=== PATIENT | male | born 1985 | race Caucasian/White ===

== ENCOUNTER 2018-02-27 21:49 | Emergency (ER) | payer OTHER ==
[~2018-02-27] VITALS: Ht 185.4 cm; Wt 104.3 kg
[2018-02-27 22:34] VITALS: BP 141/74; Ht 185.4 cm; Wt 104.3 kg
== END 2018-02-27 23:54 | disposition home or self-care (01) ==
LOC: ED 21:49
DX: K52.9 Noninfective gastroenteritis and colitis, unspecified (principal); R03.0 Elevated blood-pressure reading, without diagnosis of hypertension